=== PATIENT | female | born 1990 | race Caucasian/White ===

== ENCOUNTER 2018-12-20 09:53 | Inpatient (IN) | payer OTHER ==
[~2018-12-20 09:53] MED LIST: DESFLURANE 15 MIN; TRANEXAMIC ACID 1 GM/100 ML (PMX)
[2018-12-20] MEDS: GABAPENTIN 300 MG CAP PO ×3 (10:00→21:24)
[2018-12-20] MEDS: TRANEXAMIC ACID 1GM/100ML(PMX) 100 ML IVPB (10:00)
[2018-12-20] MEDS: CEFAZOLIN 2 GM/50 ML (PMX) 50 ML IVPB (10:00)
[2018-12-20] MEDS ORDERED: BUPIVACAINE 0.5% (SDV) 30 ML, morphine SULFATE (PF) 8 MG, EPINEPHrine 0.3 MG, KETOROLAC... IRR (10:00)
[2018-12-20] MEDS: DEXAMETHASONE 1 MG TAB PO (10:00)
[2018-12-20] MEDS: SOD CHLORIDE 0.9% 100 ML, TRANEXAMIC ACID 3,000 MG IRR (10:00)
[2018-12-20] MEDS ORDERED: POLYMYXIN/BACITRACIN 1L IRRIG (12:52)
[2018-12-20] MEDS ORDERED: THROMBIN 5000 UNIT VIAL (12:52)
[2018-12-20] MEDS ORDERED: CA CHLORIDE 10% 10 ML SYRINGE (12:52)
[2018-12-20] MEDS ORDERED: PROPOFOL 20 ML (12:56)
[2018-12-20] MEDS ORDERED: morphine SULFATE/PF (10 MG/10 ML) INJ (12:56)
[2018-12-20] MEDS ORDERED: MIDAZOLAM 1 MG/ML 2 ML INJ (12:56)
[2018-12-20] MEDS ORDERED: METOCLOPRAMIDE 10 MG INJ ×2 (12:56→16:22)
[2018-12-20] MEDS ORDERED: ONDANSETRON 4 MG INJ (12:56)
[2018-12-20] MEDS ORDERED: FENTAnyl 50 MCG/ML VIAL (13:07)
[2018-12-20] MEDS ORDERED: EPHEDrine 25 MG/5 ML SYG (13:17)
[2018-12-20] MEDS: POLYMYXIN/BACITRACIN 1L IRRIG IRR (13:22)
[2018-12-20] MEDS ORDERED: MEPERIDINE 25 MG INJ IV (13:30)
[2018-12-20] MEDS ORDERED: FENTAnyl 50 MCG/ML VIAL IV ×3 (13:30)
[2018-12-20] MEDS ORDERED: DIPHENHYDRAMINE 50 MG INJ IV ×2 (13:30→15:00)
[2018-12-20] MEDS ORDERED: HYDROmorphONE 1 MG/5 ML IV SYRINGE IV ×3 (13:30)
[2018-12-20] MEDS ORDERED: MAGNESIUM HYDROXIDE 30ML CUP PO (15:00)
[2018-12-20] MEDS ORDERED: LACTATED RINGER'S 1,000 ML IV* (15:00)
[2018-12-20] MEDS ORDERED: ZOLPIDEM 5 MG TAB PO (15:00)
[2018-12-20] MEDS ORDERED: oxyCODONE 5 MG TAB PO ×3 (15:00)
[2018-12-20] MEDS ORDERED: NACL 0.9% 3 ML SYG IV (15:00)
[2018-12-20] MEDS ORDERED: ACETAMINOPHEN 1000MG/100ML IV 100 ML IVPB (15:00)
[2018-12-20] MEDS: ONDANSETRON 4 MG INJ IV ×2 (15:39→21:52)
[2018-12-20 15:47] LABS: ADD MAN DIFF? NO
[2018-12-20 15:49] LABS: BASOPHIL # 0.1 10^3/ul (0.0-0.1); BASOPHILS % 0.5 % (0.0-2.0); EOSINOPHILS % 0.1 % (0.0-7.0); HEMATOCRIT 34.2 % (37.0-47.0); HEMOGLOBIN 11.9 g/dl (12.0-16.0); LYMPHOCYTES # 1.6 10^3/ul (0.8-2.9); MEAN CORPUSCULAR HEMOGLOBIN 30.7 pg (29.0-33.0); MEAN CORPUSCULAR HGB CONC 34.8 g/dl (32.0-37.0); MEAN CORPUSCULAR VOLUME 88.1 fl (82.0-101.0); MEAN PLATELET VOLUME 9.2 fl (7.4-10.4); MONOCYTE # 0.3 10^3/ul (0.3-0.9); MONOCYTES % 2.4 % (0.0-11.0); NEUTROPHIL # 11.3 10^3/ul (1.6-7.5); NEUTROPHILS % 83.9 % (39.0-77.0); PLATELET COUNT 219 10^3/UL (140-415); RED BLOOD COUNT 3.88 10^6/ul (4.20-5.40); RED CELL DISTRIBUTION WIDTH 11.6 % (11.5-14.5)
[2018-12-20 15:49] LABS: WHITE BLOOD COUNT 13.5 10^3/ul (4.8-10.8)
[2018-12-20 16:00] LABS: HOLD TRANSMISSIONS 1
[2018-12-20] MEDS ORDERED: METOCLOPRAMIDE 10 MG INJ IV (16:30)
[2018-12-20] MEDS: LACTATED RINGER'S 1,000 ML IV (16:35)
[2018-12-20] MEDS: ACETAMINOPHEN 1000MG/100ML IV 100 ML IVPB (16:36)
[2018-12-20] MEDS: METOCLOPRAMIDE 10 MG INJ IV (16:44)
[2018-12-20] MEDS: CEFAZOLIN 1 GM/50 ML (PMX) 50 ML IVPB ×2 (17:10→23:37)
[2018-12-20] MEDS: DEXAMETHASONE 2 MG TAB PO (18:00)
[2018-12-20] MEDS: SCOPOLAMINE 1.5 MG PATCH TRANSDERM (18:57)
[2018-12-20] MEDS: SENNA/DOCUSATE NA (8.6MG/50MG) TAB PO (21:00)
[2018-12-20] MEDS: HYDROmorphONE 1 MG/ML SYG IV (21:31)
[2018-12-21] MEDS: DEXAMETHASONE 2 MG TAB PO ×3 (00:25→12:23)
[2018-12-21] MEDS: ACETAMINOPHEN 1000MG/100ML IV 100 ML IVPB ×2 (01:36→05:15)
[2018-12-21] MEDS: LACTATED RINGER'S 1,000 ML IV (03:41)
[2018-12-21 05:53] LABS: ADD MAN DIFF? NO
[2018-12-21 05:57] LABS: WHITE BLOOD COUNT 11.9 10^3/ul (4.8-10.8)
[2018-12-21 05:58] LABS: BASOPHILS % 0.2 % (0.0-2.0); HEMATOCRIT 29.3 % (37.0-47.0); LYMPHOCYTES # 1.6 10^3/ul (0.8-2.9); LYMPHOCYTES % 13.5 % (15.0-51.0); MEAN CORPUSCULAR HEMOGLOBIN 30.6 pg (29.0-33.0); MEAN CORPUSCULAR HGB CONC 34.1 g/dl (32.0-37.0); MEAN CORPUSCULAR VOLUME 89.6 fl (82.0-101.0); MEAN PLATELET VOLUME 9.9 fl (7.4-10.4); MONOCYTE # 1.1 10^3/ul (0.3-0.9); NEUTROPHIL # 9.2 10^3/ul (1.6-7.5); NEUTROPHILS % 76.6 % (39.0-77.0); PLATELET COUNT 188 10^3/UL (140-415); RED BLOOD COUNT 3.27 10^6/ul (4.20-5.40); RED CELL DISTRIBUTION WIDTH 11.9 % (11.5-14.5)
[2018-12-21] MEDS: CEFAZOLIN 1 GM/50 ML (PMX) 50 ML IVPB (06:28)
[2018-12-21] MEDS: ASPIRIN (EC) 325 MG TAB PO (09:38)
[2018-12-21] MEDS: SENNA/DOCUSATE NA (8.6MG/50MG) TAB PO (09:38)
[2018-12-22] MEDS ORDERED: MAGNESIUM HYDROXIDE 30ML CUP PO (21:00)
== END 2018-12-21 14:50 | disposition home or self-care (01) | DRG 470 ==
LOC: REC 09:53 → MS1 17:52
PROVIDERS: Orthopaedic Surgery
PROC: 0SRB04A Replacement of Left Hip Joint with Ceramic on Polyethylene Synthetic Substitute, Uncemented, Open Approach (ICD-10-PCS; principal; 2018-12-20 12:00)
DX: M16.12 Unilateral primary osteoarthritis, left hip (principal); M32.9 Systemic lupus erythematosus, unspecified
CPT/HCPCS: 72170; 73530; 84703; 85025; 86999; 87086; 88304; 88311; 97161